=== PATIENT | male | born 1945 | race Caucasian/White ===

== ENCOUNTER 2018-10-25 11:27 | Outpatient (CLI) | payer MEDICARE, BC, SELFPAY ==
[2018-10-25 12:58] LABS: Calculated LDL 103 mg/dL; Cholesterol 149 mg/dL (50-200); HDL Cholesterol 30 mg/dL (40-60); Triglyceride 83 mg/dL (30-150)
[2018-10-26 10:04] LABS: PSA, Screening 1.4 ng/ml (0-6.5)
== END 2018-10-25 11:47 ==
PROVIDERS: PCP Emergency Medicine; Visit Provider Emergency Medicine
DX: E78.5 Hyperlipidemia, unspecified (principal); Z12.5 Encounter for screening for malignant neoplasm of prostate; I10 Essential (primary) hypertension
CPT/HCPCS: 36415; 80061; 84153

== ENCOUNTER 2018-10-25 11:48 | Outpatient (REF) | payer MEDICARE, BC, SELFPAY ==
[2018-10-25 12:59] LABS: Bilirubin Negative (Negative); Blood Trace-lysed (Negative); Clarity Clear (Clear); Glucose Negative (Negative); Ketones Negative (Negative); Leukocyte Esterase Negative (Negative); Nitrite Negative (Negative); Urobilinogen 0.2 EU/dL (Up TO 0.2); pH 5.5 (5-8)
[2018-10-25 13:46] LABS: Bacteria Rare HPF (Negative); Crystals Negative HPF (Negative); Epithelial Cells Negative HPF (Negative); Mucus Negative (Negative); Other Cells Few Spermatozoa (Negative); WBC Negative HPF (0-5)
[2018-10-25 13:47] LABS: C & S Indicated? No; Casts Negative LPF (Negative)
== END 2018-10-25 12:08 ==
LOC: LBN 11:48
PROVIDERS: PCP Emergency Medicine; Visit Provider Emergency Medicine
DX: R31.9 Hematuria, unspecified (principal)
CPT/HCPCS: 81003; 81015

== ENCOUNTER 2018-10-25 13:35 | Outpatient (CLI) | payer MEDICARE, BC, SELFPAY ==
--- NOTE | 2018-10-25 12:30 | DI.RAD_ITS ---
SYMPTOMS/DIAGNOSIS: NIGHT SWEATS, R61 PA AND LATERAL CHEST: The heart size is within normal limits. The aorta is mildly tortuous. The lungs appear clear. No infiltrate, effusion, mass or adenopathy is seen. Degenerative changes are seen in the thoracic spine. IMPRESSION: No acute abnormality.
== END 2018-10-25 13:55 ==
PROVIDERS: PCP Emergency Medicine; Visit Provider Emergency Medicine
DX: R61 Generalized hyperhidrosis (principal); E78.5 Hyperlipidemia, unspecified; I10 Essential (primary) hypertension; Z12.5 Encounter for screening for malignant neoplasm of prostate
CPT/HCPCS: 36415; 80061; 84153; 71046

== ENCOUNTER 2020-11-06 15:11 | Outpatient (REF) | payer MEDICARE, SELFPAY ==
[2020-11-06 14:34] LABS: BUN 24 mg/dL (7-18); CREATININE 1.5 mg/dL (0.70-1.30); Calcium 8.9 mg/dL (8.5-10.1); Calculated LDL 80 mg/dL (<100); Chloride 102 mmol/L (98-107); Cholesterol 126 mg/dL (<200); Estimated GFR 45.87 (mL/min/1.73m2); Glucose 107 mg/dL (74-106); HDL Cholesterol 29 mg/dL (40-60); Potassium 4.5 mmol/L (3.5-5.1); Sodium 140 mmol/L (136-145); Triglyceride 87 mg/dL (<150)
[2020-11-06 22:33] LABS: PSA, Screening 1.4 ng/mL (0.0-6.5)
== END 2020-11-06 15:12 | disposition home or self-care (01) ==
LOC: LBN 15:11
PROVIDERS: PCP Emergency Medicine; Visit Provider Emergency Medicine
DX: I10 Essential (primary) hypertension; E78.5 Hyperlipidemia, unspecified; Z12.5 Encounter for screening for malignant neoplasm of prostate
CPT/HCPCS: 80048; 80061; 84153

== ENCOUNTER 2021-11-11 03:30 | Outpatient (CLI) | payer MEDICARE, SELFPAY ==
[2021-11-11 12:40] LABS: Anion Gap 8.1 mmol/L (3-11); BUN 23 mg/dL (7-18); CO2 27.9 mmol/L (21.0-32.0); CREATININE 1.3 mg/dL (0.70-1.30); Calculated LDL 72 mg/dL (<100); Chloride 102 mmol/L (98-107); Cholesterol 119 mg/dL (<200); Estimated GFR 57.65 (mL/min/1.73m2); Glucose 105 mg/dL (74-106); HDL Cholesterol 34 mg/dL (40-60); Potassium 4.2 mmol/L (3.5-5.1); Sodium 138 mmol/L (136-145); Triglyceride 69 mg/dL (<150)
== END 2021-11-11 03:31 | disposition home or self-care (01) ==
LOC: LOS 03:30
PROVIDERS: PCP Nurse Practitioner Family; Visit Provider Nurse Practitioner Family
DX: E78.5 Hyperlipidemia, unspecified (principal); I10 Essential (primary) hypertension
CPT/HCPCS: 36415; 80048; 80061

== ENCOUNTER 2022-11-18 05:07 | Outpatient (CLI) | payer MEDICARE, SELFPAY ==
[2022-11-18 12:36] LABS: CREATININE 1.4 mg/dL (0.70-1.30); Calculated LDL 88 mg/dL (<100); Cholesterol 142 mg/dL (<200); Estimated GFR 52.41 (mL/min/1.73m2); HDL Cholesterol 37 mg/dL (40-60); Potassium 4.3 mmol/L (3.5-5.1); Triglyceride 86 mg/dL (<150)
== END 2022-11-18 05:08 | disposition home or self-care (01) ==
LOC: LOS 05:07
PROVIDERS: PCP Nurse Practitioner Family; Visit Provider Nurse Practitioner Family
DX: I10 Essential (primary) hypertension (principal); E78.5 Hyperlipidemia, unspecified
CPT/HCPCS: 36415; 80061; 82565; 84132